=== PATIENT | male | born 1995 | race Caucasian/White ===

== ENCOUNTER 2021-10-02 16:02 | Emergency (ER) | payer BC, SELFPAY ==
[2021-10-02 16:07] VITALS: BP 139/81; PULSE 84; RESP 16; TEMP 36.9; O2SAT 98
--- NOTE | 2021-10-02 16:15 | ED.URI ---
HPI - URI/Sore Throat General Chief Complaint: Upper Respiratory Infection Stated Complaint: sinus infection Time Seen by Provider: 10/02/21 16:10 Source: patient and RN notes reviewed Mode of arrival: ambulatory Limitations: no limitations History of Present Illness HPI Narrative: 25-year-old male presents concern for more than 1 month history of sinus congestion, drainage. Reports he is trying many iobn-ndv-exygbfn remedies without relief. He denies shortness of breath, fever, bodies, chills, sweats. MD elicited complaint: nasal congestion and sinus pain Related Data Home Medications Medication Instructions Recorded Confirmed sertraline 100 mg tablet 1 mg PO DAILY 04/06/19 10/02/21 Allergies Allergy/AdvReac Type Severity Reaction Status Date / Time No Known Allergies Allergy Verified 04/06/19 11:57 Review of Systems Review of Systems: CONSTITUTIONAL: Denies malaise, chills, sweats, or fever. EYES: Denies visual changes, redness, or discharge. ENT: Reports rhinorrhea, congestion, sinus pain. Denies otalgia and sore throat. CARDIOVASCULAR: Denies chest pain, palpitations, or edema. RESPIRATORY: Reports cough. Denies dyspnea. GASTROINTESTINAL: Denies abdominal pain, nausea, vomiting, diarrhea SKIN: Denies rash or itching. MUSCULOSKELETAL: Denies myalgia. NEUROLOGIC: Denies headache. All systems reviewed & are unremarkable except as noted in HPI and below PMFSH Past Medical History Medical History (Updated 10/02/21 @ 16:22 by Tiana Oneil NP) Anxiety No pertinent family history Surgical History Surgical History (Updated 04/06/19 @ 12:15 by MARC Lara) No significant past surgical history Social History Social History (Updated 04/06/19 @ 12:31 by MARC Lara) Smokeless tobacco user: chewing tobacco Comments At time of signature, agree with nursing past medical, surgical, social and family history. There is no relevant family history pertinent to the presenting complaint Exam Narrative: GENERAL: Well-appearing, well-nourished, and in no acute distress. HEAD: Normocephalic EYES: PERRLA, conjunctivae clear ENT: Nares clear, turbinates edematous and erythematous, sinus tenderness. Mucous membranes moist. TM pearly low with dull light reflex bilaterally; no tragal tenderness. Oropharynx not erythematous without lesions. Tonsils not enlarged and without exudate, no drooling, no hoarseness, no trismus, uvula midline. NECK: Supple. No lymphadenopathy CHEST: Clear to auscultation, breath sounds equal. No wheezing, rhonchi, rales, or stridor. No respiratory distress, speaks in full sentences. HEART: Regular rate and rhythm. No murmur heard. SKIN: Warm, dry, no rash. NEURO: Alert and oriented x3. PSYCH: Normal mood and affect Course Course Emergency Course: Patient is aware of diagnosis, understands and agrees to treatment plan. Anticipatory guidance given. Patient agrees to follow-up as directed and is aware of reasons to seek care at the emergency department. Portions of this record may have been created with voice recognition software Level of Care: Express Care Visit Vital Signs Vital signs: Vital Signs Temperature 98.4 F 10/02/21 16:07 Pulse Rate 84 10/02/21 16:07 Respiratory Rate 16 10/02/21 16:07 Blood Pressure 139/81 10/02/21 16:07 Pulse Oximetry 98 10/02/21 16:07 Oxygen Delivery Room Air 10/02/21 16:07 Temperature 98.4 F 10/02/21 16:07 Pulse Rate 84 10/02/21 16:07 Respiratory Rate 16 10/02/21 16:07 Blood Pressure 139/81 10/02/21 16:07 Pulse Oximetry 98 10/02/21 16:07 Oxygen Delivery Room Air 10/02/21 16:07 Reviewed. MDM - URI/Sore Throat MDM Narrative Medical decision making narrative: Differential diagnosis considered: Gomez virus, strep pharyngitis, allergic rhinitis, upper respiratory tract infection, sinusitis, rhinosinusitis, nasopharyngitis. viral pharyngitis, otitis media, otitis externa, pneumonia, bronc
== END 2021-10-02 16:29 | disposition home or self-care (01) ==
PROVIDERS: Emergency Provider Nurse Practitioner; PCP Nurse Practitioner Family
DX: J01.90 Acute sinusitis, unspecified (principal); F17.220 Nicotine dependence, chewing tobacco, uncomplicated; F41.9 Anxiety disorder, unspecified
CPT/HCPCS: 99213; G0463

== ENCOUNTER 2022-01-25 18:06 | Emergency (ER) | payer BC, SELFPAY ==
[2022-01-25 18:18] VITALS: BP 144/71; PULSE 99; RESP 16; TEMP 37; O2SAT 100
--- NOTE | 2022-01-25 18:33 | ED.SKABFB ---
HPI - Skin/Abscess/Foreign Bdy General Chief complaint: Skin/Abscess/Foreign Body Stated complaint: rash on left arm Time Seen by Provider: 01/25/22 18:36 Source: patient Mode of arrival: ambulatory Limitations: no limitations History of Present Illness HPI narrative: 26 y/o male presented for skin rash to left forearm. Endorses 2 sites of red patches. States he had bloodwork 2 days ago, one site is where the adhesive of the bandaid was, and states he ripped it off. The other site first noticed about 3 days ago. Round red area, mild itching. No drainage or pain. Related Data Home Medications Medication Instructions Recorded Confirmed sertraline 100 mg tablet 1 mg PO DAILY 04/06/19 01/25/22 Allergies Allergy/AdvReac Type Severity Reaction Status Date / Time No Known Allergies Allergy Verified 01/25/22 18:26 Review of Systems Review of Systems: CONSTITUTIONAL: Denies body aches, fever, chills, or sweats. EYES: Denies visual changes, redness, or discharge. ENT: Denies rhinorrhea, congestion CARDIOVASCULAR: Denies chest pain, palpitations, or edema. RESPIRATORY: Denies cough or dyspnea. GASTROINTESTINAL: Denies abdominal pain, nausea, vomiting, or diarrhea. SKIN: reports rash left forearm MUSCULOSKELETAL: Denies back pain, joint pain, or myalgia. NEUROLOGIC: Denies headache, numbness, tingling, or weakness. COUNT INCLUDES [facility] Past Medical History Medical History Anxiety No pertinent family history Surgical History Surgical History No significant past surgical history Social History Social History Smokeless tobacco user: chewing tobacco Comments At time of signature, I have reviewed and agree with nursing past medical, surgical, social and family history unless otherwise noted. Please see nursing chart for further information. There is no relevant family history pertinent to the presenting complaint Exam Narrative: GENERAL: Well-appearing HEAD: Normocephalic, atraumatic. EYES: conjunctivae clear, and EOMI. ENT: Mucous membranes moist. Oropharynx without edema, erythema or lesions. NECK: Supple. No lymphadenopathy CHEST: Clear to auscultation. HEART: Regular rate and rhythm. SKIN: Warm, dry. Left forearm distal site approx 1cm diameter mild erythematous papules, no drainage c/w follliculitis; proximal site red area approx 1cm appears c/w skin avulsion, no active drainage, nontender NEURO: Alert and oriented x3. Course Course Emergency Course: Patient is aware of diagnosis, understands and agrees to treatment plan. Anticipatory guidance given. Patient agrees to follow-up as directed and is aware of reasons to seek care at the emergency department. Portions of this record may have been created with voice recognition software Level of Care: Express Care Visit Vital Signs Vital signs: Vital Signs Temperature 98.6 F 01/25/22 18:18 Pulse Rate 99 01/25/22 18:18 Respiratory Rate 16 01/25/22 18:18 Blood Pressure 144/71 H 01/25/22 18:18 Pulse Oximetry 100 01/25/22 18:18 Oxygen Delivery Room Air 01/25/22 18:18 Temperature 98.6 F 01/25/22 18:18 Pulse Rate 99 01/25/22 18:18 Respiratory Rate 16 01/25/22 18:18 Blood Pressure 144/71 H 01/25/22 18:18 Pulse Oximetry 100 01/25/22 18:18 Oxygen Delivery Room Air 01/25/22 18:20 Reviewed MDM - Skin/Abscess/Foreign Bdy MDM Narrative Medical decision making narrative: Instructed patient to go to nearest ER immediately for any worsening symptoms including but not limited to: fever, spreading rash, pain, sore throat, headache, dizziness, chest pain, trouble breathing, or any symptoms concerning to the patient. Differential Diagnosis Differential diagnosis: Likely abscess of skin or subcutaneous tissue, urticaria, herpes zoster, cellulitis and contact d
== END 2022-01-25 18:47 | disposition home or self-care (01) ==
PROVIDERS: Emergency Provider Nurse Practitioner Family; PCP Nurse Practitioner Family
DX: L30.9 Dermatitis, unspecified (principal); F17.220 Nicotine dependence, chewing tobacco, uncomplicated; F41.9 Anxiety disorder, unspecified
CPT/HCPCS: 99213; G0463

== ENCOUNTER 2022-01-26 16:12 | Emergency (ER) | payer BC, SELFPAY ==
[2022-01-26 16:15] VITALS: BP 142/66; PULSE 93; RESP 18; TEMP 37.3; O2SAT 100
--- NOTE | 2022-01-26 16:16 | ED.SKABFB ---
HPI - Skin/Abscess/Foreign Bdy General Chief complaint: Skin/Abscess/Foreign Body Stated complaint: returned/rash on left arm Time Seen by Provider: 01/26/22 16:16 Source: patient and RN notes reviewed History of Present Illness HPI narrative: Patient is a 26-year-old male who presents the urgent care with complaints of worsening skin condition. Patient was seen here yesterday and diagnosed with folliculitis and given mupirocin cream. Patient states he noticed the first area to the left upper arm approximately 1 week ago and that is now spread to bilateral underarms. Patient states that he shares coveralls at work. States that the areas are very itchy and he has been using [id number] Lotrimin. Patient is also use the mupirocin to the areas. No other acute complaints. No acute distress noted. Patient aware of the plan of care. Some parts of this dictation were generated by voice recognition software and may contain typographical and/or grammatical inaccuracies. Related Data Home Medications Medication Instructions Recorded Confirmed sertraline 100 mg tablet 1 mg PO DAILY 04/06/19 01/26/22 Allergies Allergy/AdvReac Type Severity Reaction Status Date / Time No Known Allergies Allergy Verified 01/26/22 16:25 Review of Systems Review of Systems: CONSTITUTIONAL: Denies fever, chills, or sweats. EYES: Denies visual changes, redness, or discharge. ENT: Denies rhinorrhea, congestion, sore throat, or otalgia. CARDIOVASCULAR: Denies chest pain, palpitations, or edema. RESPIRATORY: Denies cough or dyspnea. GASTROINTESTINAL: Denies abdominal pain, nausea, vomiting, or diarrhea. GENITOURINARY: Denies dysuria or hematuria. SKIN: Reports of worsening skin condition with itchiness to bilateral underarms and left upper arm MUSCULOSKELETAL: Denies back pain, joint pain, or myalgia. NEUROLOGIC: Denies headache, numbness, or weakness. All other systems reviewed are negative, except as documented in HPI. [facility] Past Medical History Medical History Anxiety No pertinent family history Surgical History Surgical History No significant past surgical history Social History Social History (Reviewed 09/30/22 @ 20:09 by EMIR Matta Smokeless tobacco user: chewing tobacco Comments At the time of my signature, I reviewed and agree with the nursing past medical, surgical, social, and family history. There is no relevant family history pertinent to the patient complaint. Exam Narrative: GENERAL: This is a well-nourished, well-developed patient, in no apparent distress. HEAD: normocephalic, atraumatic. EYES: PERRL. Sclera clear/white. Vision is grossly intact. EARS: External ears normal NOSE: External nose normal with no obvious nasal discharge, nares without redness, no rhinorrhea. THROAT: Mucous membranes moist NECK: Neck supple SKIN: Scattered areas of tinea to the bilateral axilla and left upper arm NEURO: awake, alert, and oriented to person, place and time. There were no obvious focal neurologic abnormalities. EXTREMITIES: No clubbing, cyanosis, or edema. Course Course Level of Care: Express Care Visit Vital Signs Vital signs: Vital Signs Temperature 99.1 F 01/26/22 16:15 Pulse Rate 93 01/26/22 16:15 Respiratory Rate 18 01/26/22 16:15 Blood Pressure 142/66 H 01/26/22 16:15 Pulse Oximetry 100 01/26/22 16:15 Oxygen Delivery Room Air 01/26/22 16:15 Temperature 99.1 F 01/26/22 16:15 Pulse Rate 93 01/26/22 16:15 Respiratory Rate 18 01/26/22 16:15 Blood Pressure 142/66 H 01/26/22 16:15 Pulse Oximetry 100 01/26/22 16:15 Oxygen Delivery Room Air 01/26/22 16:15 Reviewed-patient is informed that they may have pre-hypertension or hypertension based on a blood pressure reading in the department. I recommend the patient call the primary care provider listed on
== END 2022-01-26 16:30 | disposition home or self-care (01) ==
PROVIDERS: Emergency Provider Nurse Practitioner Family; PCP Nurse Practitioner Family
DX: B35.9 Dermatophytosis, unspecified (principal); F41.9 Anxiety disorder, unspecified
CPT/HCPCS: 99213; G0463

== ENCOUNTER 2023-03-16 10:36 | Emergency (ER) | payer BC, SELFPAY ==
--- NOTE | 2023-03-16 10:43 | ED.SKABFB ---
HPI - Skin/Abscess/Foreign Bdy General Chief complaint: Skin/Abscess/Foreign Body Stated complaint: poison titus or oak Time Seen by Provider: 03/16/23 11:30 Source: patient and RN notes reviewed Mode of arrival: ambulatory Limitations: no limitations History of Present Illness HPI narrative: 27-year-old male presents concern for rash to bilateral arms. Reports he was exposed to poison titus. Reports rash started 4 days ago after cutting down a tree. Reports he is in [id number] drying agent without relief. He denies swollen lips, swollen tongue, trouble breathing. MD complaint: rash Related Data Home Medications Medication Instructions Recorded Confirmed escitalopram oxalate 10 mg tablet 10 mg PO DAILY 03/16/23 03/16/23 omeprazole 20 mg capsule,delayed 20 mg PO DAILY 03/16/23 03/16/23 release Allergies Allergy/AdvReac Type Severity Reaction Status Date / Time No Known Allergies Allergy Verified 03/16/23 11:10 Review of Systems Review of Systems: CONSTITUTIONAL: Denies malaise, chills, sweats, or fever. EYES: Denies redness, or discharge. ENT: Denies rhinorrhea, congestion, swollen lips, swollen tongue CARDIOVASCULAR: Denies chest pain, palpitations, or edema. RESPIRATORY: Denies cough or dyspnea. GASTROINTESTINAL: Denies abdominal pain, nausea, vomiting SKIN: Reports itchy rash on bilateral arms MUSCULOSKELETAL: Denies joint pain or myalgia. NEUROLOGIC: Denies headache. All systems reviewed & are unremarkable except as noted in HPI and below PMFSH Past Medical History Medical History Anxiety No pertinent family history Surgical History Surgical History No significant past surgical history Social History Social History Smokeless tobacco user: chewing tobacco Comments At time of signature, agree with nursing past medical, surgical, social and family history. There is no relevant family history pertinent to the presenting complaint Exam Narrative: GENERAL: Well-appearing, well-nourished, and in no acute distress. HEAD: Normocephalic, atraumatic. EYES: PERRLA, conjunctivae clear, and EOMI. ENT: Mucous membranes moist. Oropharynx without edema, erythema or lesions. NECK: Supple. No lymphadenopathy CHEST: Clear to auscultation. No respiratory distress. HEART: Regular rate and rhythm. SKIN: Warm, dry. Patches of erythema with scattered papules and vesicles noted to the right forearm, small patch in to NEURO: Alert and oriented x3. PSYCH: Normal mood and affect Course Course Emergency Course: Patient is aware of diagnosis, understands and agrees to treatment plan. Anticipatory guidance given. Patient agrees to follow-up as directed and is aware of reasons to seek care at the emergency department. Portions of this record may have been created with voice recognition software Level of Care: Express Care Visit Vital Signs Vital signs: Vital Signs Temperature 98.7 F 03/16/23 10:52 Pulse Rate 93 03/16/23 10:52 Respiratory Rate 14 03/16/23 10:52 Blood Pressure 158/64 H 03/16/23 10:52 Pulse Oximetry 100 03/16/23 10:52 Oxygen Delivery Room Air 03/16/23 10:52 Temperature 98.7 F 03/16/23 10:52 Pulse Rate 93 03/16/23 10:52 Respiratory Rate 14 03/16/23 10:52 Blood Pressure 158/64 H 03/16/23 10:52 Pulse Oximetry 100 03/16/23 10:52 Oxygen Delivery Room Air 03/16/23 10:52 Reviewed. MDM - Skin/Abscess/Foreign Bdy MDM Narrative Medical decision making narrative: Does not appear at this time to be erythema multiforme, bullous, SJS, TEN; no evidence at this time to suggest RMSF, endocarditis or Lyme disease; patient looks well, nontoxic and is tolerating oral intake; no neurologic signs or symptoms; no headache, photophobia or neck pain; afebrile; appropriate for initial outpatien
[2023-03-16 10:52] VITALS: BP 158/64; PULSE 93; RESP 14; TEMP 37.1; O2SAT 100
== END 2023-03-16 11:44 | disposition home or self-care (01) ==
PROVIDERS: Emergency Provider Nurse Practitioner; PCP Nurse Practitioner Family
DX: L25.9 Unspecified contact dermatitis, unspecified cause (principal); F17.220 Nicotine dependence, chewing tobacco, uncomplicated
CPT/HCPCS: 99213; G0463